=== PATIENT | male | born 1990 | race Caucasian/White ===

== ENCOUNTER 2022-05-05 17:18 | Emergency (ER) | payer OTHER ==
[~2022-05-05] VITALS: Ht 185.4 cm; Wt 98.9 kg
== END 2022-05-05 19:30 | disposition home or self-care (01) ==
LOC: ER 17:18
DX: M79.641 Pain in right hand (principal); W22.8XXA Striking against or struck by other objects, initial encounter; Z88.2 Allergy status to sulfonamides; Z88.6 Allergy status to analgesic agent
CPT/HCPCS: 73130; A9270

== ENCOUNTER 2022-05-07 18:42 | Emergency (ER) | payer OTHER ==
[~2022-05-07] VITALS: Ht 185.4 cm; Wt 104.3 kg
[2022-05-07 20:06] LABS: BASOPHILS ABSOLUTE AUTO 0.03 K/mm3 (0.00-0.23); BASOPHILS PERCENT AUTO 1 % (0-2); EOSINOPHILS ABSOLUTE AUTO 0.11 K/mm3 (0.00-0.68); EOSINOPHILS PERCENT AUTO 2 % (0-6); Hematocrit 38.4 % (37.0-53.0); Hemoglobin 13.4 g/dL (13.5-17.5); IMMATURE GRAN ABSOLUTE AUTO 0.01 K/mm3 (0.00-0.10); IMMATURE GRAN PERCENT AUTO 0 % (0-1); LYMPHOCYTES ABSOLUTE AUTO 1.48 K/mm3 (0.84-5.20); LYMPHOCYTES PERCENT AUTO 30 % (21-46); MONOCYTES ABSOLUTE AUTO 0.63 K/mm3 (0.16-1.47); MONOCYTES PERCENT AUTO 13 % (4-13); Mean Corpuscular HGB 35.5 pg (26.0-34.0); Mean Corpuscular HGB Conc 34.9 g/dL (31.5-36.5); Mean Corpuscular Volume 102 fL (80-100); Mean Platelet Volume 9.5 fL (9.1-12.4); NEUTROPHILS ABSOLUTE AUTO 2.68 K/mm3 (1.96-9.15); NEUTROPHILS PERCENT AUTO 54 % (41-73); Platelet Count 328 K/mm3 (150-400); RDW Coefficient Variation 12.3 % (11.7-14.2); RDW Standard Deviation 46.2 fL (35.1-46.3); Red Blood Cell Count 3.77 M/mm3 (4.30-5.90); White Blood Cell Count 4.94 K/mm3 (4.00-11.30)
[2022-05-07 20:19] LABS: Ethanol (Alcohol), Blood, Med <3 mg/dL; Magnesium, Blood 2.1 mg/dL (1.6-2.4)
[2022-05-07 22:55] LABS: Alanine Aminotransfer (ALT/SGP 47 U/L (12-78); Albumin, Blood 3.7 g/dL (3.4-5.0); Albumin/Globulin Ratio 1.1 (0.8-1.8); Alk Phos 120 U/L (50-136); Anion Gap 5 mmol/L (6-16); Aspartate Aminotrans (AST/SGOT 30 U/L (12-37); Bilirubin, Total 0.1 mg/dL (0.1-1.0); Blood Urea Nitrogen 12 mg/dL (8-24); Bun/Creatinine Ratio 16.2 (12.0-20.0); CO2, Blood 24 mmol/L (21-32); Calcium, Blood 9.1 mg/dL (8.5-10.1); Chloride, Blood 111 mmol/L (98-108); Creatinine, Blood 0.74 mg/dL (0.60-1.20); Globulin, Blood 3.5 g/dL (2.2-4.0); Glomerular Filtration Rate 126 (60-); Glucose, Blood 103 mg/dL (70-99); Potassium, Blood 4.1 mmol/L (3.5-5.5); Sodium, Blood 140 mmol/L (136-145); Total Protein, Blood 7.2 g/dL (6.4-8.2)
== END 2022-05-08 00:03 | disposition home or self-care (01) ==
LOC: ER 18:42
PROVIDERS: Student in an Organized Health Care Education/Training Program
DX: R56.9 Unspecified convulsions (principal); R20.0 Anesthesia of skin; M25.562 Pain in left knee; M54.50 Low back pain, unspecified; Z88.6 Allergy status to analgesic agent; Z88.2 Allergy status to sulfonamides
CPT/HCPCS: 70450; 72100; 72125; 80053; 82947; 83735; 85025; 93005; 93010; A9270; G0480; J2405

== ENCOUNTER 2023-06-02 11:00 | Emergency (ER) | payer OTHER ==
[~2023-06-02] VITALS: Ht 188 cm; Wt 100.2 kg
[2023-06-02] MEDS ORDERED: BUTALB-ACETAMI1 EAC7 PO (11:19)
[2023-06-02] MEDS ORDERED: QUET200 PO ×2 (11:21)
[2023-06-02] MEDS ORDERED: OMEP20ER PO (11:22)
[2023-06-02] MEDS ORDERED: NICO21TP TOP (11:22)
[2023-06-02] MEDS ORDERED: ACET325 PO (11:22)
[2023-06-02] MEDS ORDERED: PRAZ2 PO (11:22)
[2023-06-02] MEDS ORDERED: CHLO25 PO (11:23)
[2023-06-02] MEDS ORDERED: CHLO10 PO (11:24)
[2023-06-02] MEDS ORDERED: CATAPRES-TTS 11 EAC1 PO (11:25)
[2023-06-02] MEDS ORDERED: DIAZ5 PO (11:25)
[2023-06-02] MEDS ORDERED: GABA300 PO ×2 (11:26→11:27)
[2023-06-02] MEDS ORDERED: FOLI1 PO (11:26)
[2023-06-02] MEDS ORDERED: GABA400 PO (11:27)
[2023-06-02] MEDS ORDERED: HYDPAM50 PO (11:27)
[2023-06-02] MEDS ORDERED: MELATONIN TR 51 EAC1 PO (11:28)
[2023-06-02] MEDS ORDERED: ONDA4 PO (11:28)
[2023-06-02] MEDS ORDERED: LEVE500 PO (11:28)
[2023-06-02] MEDS ORDERED: B-1100 M2 PO (11:29)
[2023-06-02] MEDS ORDERED: PROM25 PO (11:29)
[2023-06-02] MEDS ORDERED: TRAZ50 PO (11:29)
[2023-06-02] MEDS ORDERED: TOPI25 PO (11:29)
[2023-06-02 12:08] LABS: BASOPHILS ABSOLUTE AUTO 0.02 K/mm3 (0.00-0.23); BASOPHILS PERCENT AUTO 0 % (0-2); EOSINOPHILS ABSOLUTE AUTO 0.23 K/mm3 (0.00-0.68); EOSINOPHILS PERCENT AUTO 3 % (0-6); Hematocrit 37.2 % (37.0-53.0); Hemoglobin 12.3 g/dL (13.5-17.5); IMMATURE GRAN ABSOLUTE AUTO 0.02 K/mm3 (0.00-0.10); IMMATURE GRAN PERCENT AUTO 0 % (0-1); LYMPHOCYTES ABSOLUTE AUTO 1.07 K/mm3 (0.84-5.20); LYMPHOCYTES PERCENT AUTO 14 % (21-46); MONOCYTES ABSOLUTE AUTO 0.48 K/mm3 (0.16-1.47); MONOCYTES PERCENT AUTO 7 % (4-13); Mean Corpuscular HGB 33.6 pg (26.0-34.0); Mean Corpuscular HGB Conc 33.1 g/dL (31.5-36.5); Mean Corpuscular Volume 102 fL (80-100); Mean Platelet Volume 10.3 fL (9.1-12.4); NEUTROPHILS ABSOLUTE AUTO 5.59 K/mm3 (1.96-9.15); NEUTROPHILS PERCENT AUTO 75 % (41-73); Platelet Count 245 K/mm3 (150-400); RDW Coefficient Variation 12.4 % (11.7-14.2); RDW Standard Deviation 46.2 fL (35.1-46.3); Red Blood Cell Count 3.66 M/mm3 (4.30-5.90); White Blood Cell Count 7.41 K/mm3 (4.00-11.30)
[2023-06-02 12:09] LABS: Albumin, Blood 3.7 g/dL (3.4-5.0); Albumin/Globulin Ratio 1.1 (0.8-1.8); Bilirubin, Total 0.2 mg/dL (0.1-1.0); Calcium, Blood 9.1 mg/dL (8.5-10.1); Creatinine, Blood 0.68 mg/dL (0.60-1.20); Globulin, Blood 3.5 g/dL (2.2-4.0); Potassium, Blood 3.8 mmol/L (3.5-5.5); Total Protein, Blood 7.2 g/dL (6.4-8.2)
[2023-06-02 12:30] VITALS: BP 102/61
[2023-06-02 13:37] LABS: Base Excess Venous -7.7 mmol/L; Bicarbonate Venous 18.6 mmol/L (24.0-30.0); PCO2 Venous 40.6 mmHg (38-42); pH Blood Venous 7.28 (7.34-7.37)
[2023-06-02 14:38] LABS: Base Excess Venous 2.1 mmol/L; Bicarbonate Venous 24.9 mmol/L (24.0-30.0); PCO2 Venous 59.6 mmHg (38-42); pH Blood Venous 7.29 (7.34-7.37)
== END 2023-06-02 15:10 | disposition home or self-care (01) ==
LOC: ER 11:00
PROVIDERS: Student in an Organized Health Care Education/Training Program
DX: R41.82 Altered mental status, unspecified (principal); T42.4X5A Adverse effect of benzodiazepines, initial encounter; T42.6X5A Adverse effect of other antiepileptic and sedative-hypnotic drugs, initial encounter; T44.6X5A Adverse effect of alpha-adrenoreceptor antagonists, initial encounter; R45.6 Violent behavior; Z76.5 Malingerer [conscious simulation]; E87.29 Other acidosis; F43.10 Post-traumatic stress disorder, unspecified; G40.909 Epilepsy, unspecified, not intractable, without status epilepticus; F20.9 Schizophrenia, unspecified; G89.29 Other chronic pain; F41.9 Anxiety disorder, unspecified; F17.210 Nicotine dependence, cigarettes, uncomplicated; Z88.6 Allergy status to analgesic agent; Z88.2 Allergy status to sulfonamides; Z79.899 Other long term (current) drug therapy
CPT/HCPCS: 80053; 82803; 85025; 93005; 93010; 99285-25

== ENCOUNTER 2023-06-03 04:18 | Emergency (ER) | payer OTHER ==
[~2023-06-03] VITALS: Ht 185.4 cm; Wt 100.7 kg
[~2023-06-03 04:18] MED LIST: ACET325 PO; B-1100 M2 PO; BUTALB-ACETAMI1 EAC7 PO; CATAPRES-TTS 11 EAC1 PO; CHLO10 PO; CHLO25 PO; DIAZ5 PO; FOLI1 PO; GABA300 PO; GABA400 PO; HYDPAM50 PO; LEVE500 PO; MELATONIN TR 51 EAC1 PO; NICO21TP TOP; OMEP20ER PO; ONDA4 PO; PRAZ2 PO; PROM25 PO; QUET200 PO; TOPI25 PO; TRAZ50 PO
[2023-06-03 04:36] VITALS: BP 115/61
[2023-06-03] MEDS ORDERED: Cyclobenzaprine HCl 10 MG Tab PO ONE (05:35)
== END 2023-06-03 06:12 | disposition home or self-care (01) ==
LOC: ER 04:18
DX: G89.29 Other chronic pain (principal); M54.50 Low back pain, unspecified; G40.909 Epilepsy, unspecified, not intractable, without status epilepticus; F20.9 Schizophrenia, unspecified; F17.210 Nicotine dependence, cigarettes, uncomplicated; Z59.00 Homelessness unspecified; Z88.6 Allergy status to analgesic agent; Z88.2 Allergy status to sulfonamides; Z88.5 Allergy status to narcotic agent; Z79.899 Other long term (current) drug therapy
CPT/HCPCS: 99283; A9270

== ENCOUNTER 2024-01-13 19:50 | Emergency (ER) | payer OTHER ==
[~2024-01-13] VITALS: Ht 188 cm; Wt 89.8 kg
[2024-01-13] MEDS ORDERED: HYDROcodone 5-APAP 325 TAB PO ONE (21:35)
[2024-01-13] MEDS ORDERED: Lidocaine 4% 1 Patch TOP ONE (22:40)
[2024-01-13] MEDS ORDERED: LIDO700A20 TOP (23:46)
[2024-01-14] VITALS: BP 120/86
== END 2024-01-13 23:53 | disposition home or self-care (01) ==
LOC: ER 19:50
DX: S22.41XA Multiple fractures of ribs, right side, initial encounter for closed fracture (principal); Y09 Assault by unspecified means; G40.909 Epilepsy, unspecified, not intractable, without status epilepticus; F17.210 Nicotine dependence, cigarettes, uncomplicated; F20.9 Schizophrenia, unspecified; Z88.6 Allergy status to analgesic agent; Z88.5 Allergy status to narcotic agent; Z88.2 Allergy status to sulfonamides; Z79.899 Other long term (current) drug therapy
CPT/HCPCS: 70450; 71101; 71260; 74177; 99284-25; A9270; Q9967